=== PATIENT | female | born 1995 | race Caucasian/White ===

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

== ENCOUNTER 2017-03-01 08:43 | Inpatient (IN) | payer BC, MEDICAID ==
[~2017-03-01] VITALS: Ht 175.3 cm; Wt 83.8 kg
[~2017-03-01 08:43] MED LIST: NORCO 325 MG-51 TAB PO
[2017-04-17] VITALS (62 sets, daily range): BP systolic 104–164; BP diastolic 57–87; PULSE 60–108; TEMP 97.8–98.7
[2017-04-17] MEDS ORDERED: PRENATAL (08:14)
[2017-04-17 08:19] LABS: BASO % 0.1 % (0.0-2.0); EOS # 0.1 (0.0-0.7); EOS % 0.8 % (0-4.0); GRAN % 65.9 % (42.2-75.2); LYMPH # 2.4 (1.2-3.4); LYMPH % 26.5 % (20.0-51.0); MEAN CELL VOLUME 87 fl (80.0-95.0); MEAN CORPUSCULAR HGB CONC 33 g/dl (33.0-37.0); MEAN PLATELET VOLUME 13.1 fl (7.4-10.4); MONO # 0.6 (0.1-0.6); MONO % 6.5 % (1.7-9.3); PLATELET COUNT 142 K/mm3 (130-400); REDCELL DISTRIBUTION WIDTH-CV 12.4 % (11.5-14.5); WHITE BLOOD COUNT 9.1 K/mm3 (4.8-10.8)
[2017-04-17 08:21] LABS: HEMATOCRIT 32.3 % (35.0-45.0); HEMOGLOBIN 10.7 g/dl (12.0-15.0); MEAN CORPUSCULAR HEMOGLOBIN 29 pg (26.0-32.0)
[2017-04-18] VITALS (34 sets, daily range): BP systolic 107–144; BP diastolic 58–96; PULSE 77–136; TEMP 98.1–98.5
[2017-04-19 03:40] VITALS: BP 113/75; PULSE 83; TEMP 98.3
[2017-04-19 07:42] VITALS: BP 127/68; PULSE 84; TEMP 97.2
[2017-04-19 21:00] VITALS: BP 117/74; PULSE 79; TEMP 98.5
[2017-04-20 07:58] VITALS: BP 122/84; PULSE 80; TEMP 98.4
[2017-04-20] MEDS ORDERED: MOTRIN 600600 MG/TAB PO (09:13)
[2017-04-20] MEDS ORDERED: PERCOCET 325 MG1 TA2 PO (09:13)
== END 2017-04-20 11:30 | disposition home or self-care (01) | DRG 775 ==
LOC: LDR 04-17 07:16 → OB 04-17 07:16 → LDR 04-17 08:05 → OB 04-18 10:00 → EDSTATUS 04-29 07:34 → LDRO 04-29 08:42
PROVIDERS: Obstetrics & Gynecology
PROC: 10E0XZZ Delivery of Products of Conception, External Approach (ICD-10-PCS; principal; 2017-04-18)
PROC: 0KQM0ZZ Repair Perineum Muscle, Open Approach (ICD-10-PCS; 2017-04-18)
PROC: 3E033VJ Introduction of Other Hormone into Peripheral Vein, Percutaneous Approach (ICD-10-PCS; 2017-04-18)
DX: O48.0 Post-term pregnancy (principal); O99.824 Streptococcus B carrier state complicating childbirth; O70.1 Second degree perineal laceration during delivery; Z3A.40 40 weeks gestation of pregnancy; Z37.0 Single live birth
CPT/HCPCS: J2210; J2400; J2540; J2590; J2795; J7120

== ENCOUNTER → 2017-04-28 | Outpatient (CLI) | payer BC, MEDICAID ==
[~2017-04-28] MED LIST changes: +MOTRIN 600600 MG/TAB PO; +PERCOCET 325 MG1 TA2 PO; +PRENATAL
== END ==
LOC: LAC 11:31
DX: Z39.1 Encounter for care and examination of lactating mother (principal); Z71.89 Other specified counseling

== ENCOUNTER 2022-09-30 06:08 | Outpatient (CLI) | payer BC ==
[~2022-09-30] VITALS: Ht 172.7 cm; Wt 83.6 kg
[~2022-09-30 06:08] MED LIST changes: +NATURAL IRON65 MG
[2022-09-30 06:30] VITALS: BP 112/68; PULSE 84
--- NOTE | 2022-09-30 06:30 | NUR ---
THIS RN IN ROOM, PT COMFORTABLE IN BED. PT REPORTS NO CTX, NO LOF, POSITIVE MOVEMENT. PT REPORTS FEELING BABY'S HEAD IN RIBS. EFM TRACING CAT 1. PT QUESTIONED WHETHER PROCEDURE WOULD BE UNCOMFORTABLE. THIS RN INFORMED HER THAT IT WOULD BE BUT WOULD LAST A SHORT TIME. WILL CONTINUE TO MONITOR.
[2022-09-30 07:00] VITALS: BP 105/69; PULSE 71
[2022-09-30 07:30] VITALS: BP 95/56; PULSE 60; TEMP 98
[2022-09-30 08:00] VITALS: BP 102/64; PULSE 74
--- NOTE | 2022-09-30 08:08 | NUR ---
0808 DR. SHAIKH AND DR. AUSTIN IN ROOM TO COMPLETE ECV. EFM TRACING CAT 1. ULTRASOUND CONFIRMED BREECH POSITION. 0810 DR. SHAIKH AND NORMAN ROTATING BABY AT THIS TIME. 0811 ECV COMPLETE, US CONFIRMS HEAD DOWN, HEART TONES DETECTED IN RUQ. EFM TRACING CAT 1. PT COMFORTABLE. WILL CONTINUE WITH POC.
[2022-09-30 08:30] VITALS: BP 110/63; PULSE 81
[2022-09-30 09:00] VITALS: BP 112/63; PULSE 96
== END 2022-09-30 09:00 | disposition home or self-care (01) ==
LOC: LDRO 06:08 → LDR 08:24 → LDRO 09:00
DX: O32.1XX0 Maternal care for breech presentation, not applicable or unspecified (principal); Z3A.38 38 weeks gestation of pregnancy
CPT/HCPCS: OP; J3105